=== PATIENT | female | born 1945 | race Caucasian/White ===

== ENCOUNTER → 2016-05-19 | Outpatient (CLI) | payer OTHER, BC | LOC: MOB LAB 13:55 | PROVIDERS: ATTEND Physician Assistant | DX: J02.9 Acute pharyngitis, unspecified (principal); B34.9 Viral infection, unspecified; R50.9 Fever, unspecified | CPT/HCPCS: 87400; 87880; 99213; G0463 ==

== ENCOUNTER → 2016-07-30 | Outpatient (CLI) | payer OTHER, BC ==
[2016-07-30 08:35] LABS: BASOPHILS # (AUTO) 0.04 10*3/UL; BASOPHILS % (AUTO) 0.6 % (0-1); EOSINOPHILS % (AUTO) 21.7 % (0-8); HEMOGLOBIN 12.6 g/dL (12.0-16.0); MEAN CORPUSCULAR HGB CONC 33.2 g/dL (33-37); MEAN CORPUSCULAR VOLUME 84.4 FL (81-99); MEAN PLATELET VOLUME 9.3 FL (7.4-12.2); MONOCYTES % (AUTO) 8.7 % (5-15); NEUTROPHILS # (AUTO) 2.74 10*3/UL; NEUTROPHILS % (AUTO) 39.7 % (50-80)
[2016-07-30 08:46] LABS: PLATELET MORPHOLOGY COMMENT NORMAL MORPHOLOGY (NORM); RBC MORPHOLOGY COMMENT NORMAL MORPHOLOGY (NORM); WBC MORPHOLOGY COMMENT NORMAL MORPHOLOGY (NORM)
[2016-07-30 08:58] LABS: BUN/CREATININE RATIO 16.66 (6-20); CALCIUM 8.7 mg/dL (8.7-10.7); CHOL/HDL RATIO 3.01 RATIO (0-4.0); SERUM ALBUMIN 4.1 g/dL (3.5-4.8)
[2016-07-30 14:21] LABS: HEMOGLOBIN A1C 5.66 % (4.2-6.0)
== END ==
LOC: LAB 08:02
PROVIDERS: ATTEND Nurse Practitioner Family
DX: E11.9 Type 2 diabetes mellitus without complications (principal); I10 Essential (primary) hypertension
CPT/HCPCS: 36415; 80053; 80061; 82043; 83036; 84443; 85025

== ENCOUNTER → 2016-11-12 | Outpatient (CLI) | payer OTHER, BC | LOC: LAB 13:10 | PROVIDERS: ATTEND Psychiatry & Neurology Neurology | DX: G40.009 Localization-related (focal) (partial) idiopathic epilepsy and epileptic syndromes with seizures of localized onset, not intractable, without status epilepticus (principal) | CPT/HCPCS: 36415; 82565 ==

== ENCOUNTER → 2016-11-27 | Outpatient (CLI) | payer OTHER, BC | LOC: MMPC 09:00 | PROVIDERS: ATTEND Nurse Practitioner Family | DX: R42 Dizziness and giddiness (principal); D32.9 Benign neoplasm of meninges, unspecified; I10 Essential (primary) hypertension; E66.9 Obesity, unspecified | CPT/HCPCS: 99213; G0463 ==

== ENCOUNTER → 2016-12-10 | Outpatient (CLI) | payer OTHER, BC ==
[2016-12-10 10:59] LABS: BUN/CREATININE RATIO 12.85 (6-20)
[2016-12-10 11:02] LABS: HEMOGLOBIN A1C 5.94 % (4.2-6.0)
== END ==
LOC: LAB 10:31
PROVIDERS: ATTEND Nurse Practitioner Family
DX: E11.9 Type 2 diabetes mellitus without complications (principal); I10 Essential (primary) hypertension
CPT/HCPCS: 36415; 80048; 83036

== ENCOUNTER → 2016-12-11 | Outpatient (CLI) | payer OTHER, BC | LOC: MMPC 09:00 | PROVIDERS: ATTEND Nurse Practitioner Family | DX: E11.9 Type 2 diabetes mellitus without complications (principal); I10 Essential (primary) hypertension | CPT/HCPCS: 99213; G0463 ==